=== PATIENT | female | born 1955 | race Caucasian/White ===

== ENCOUNTER → 2017-03-22 | Outpatient (CLI) | payer OTHER | LOC: COL.VAS 07:33 | DX: I34.0 Nonrheumatic mitral (valve) insufficiency (principal); I48.91 Unspecified atrial fibrillation ==

== ENCOUNTER 2017-04-16 07:31 | Day surgery (SDC) | payer OTHER ==
[~2017-04-16] VITALS: Ht 168.9 cm; Wt 72.0 kg
[2017-04-16 08:05] VITALS: BP 98/86; PULSE 88; TEMP 97.9
[2017-04-16] MEDS ORDERED: TOPROL XL 50MG50 MG PO (08:08)
[2017-04-16] MEDS ORDERED: ZYRTEC 10MG10 MG PO (08:08)
[2017-04-16] MEDS ORDERED: VITAMIN C500 MG PO (08:09)
[2017-04-16] MEDS ORDERED: ASPIRIN 81M81 MG/TA2 PO (08:09)
[2017-04-16] MEDS ORDERED: VITAMIN B COMPL1 SGL PO (08:10)
[2017-04-16] MEDS ORDERED: VITAMIN D 400400 IU PO (08:10)
[2017-04-16] MEDS ORDERED: CALCIUM CARBON650 M2 PO (08:10)
[2017-04-16 10:00] VITALS: BP 99/76; PULSE 109; TEMP 98
[2017-04-16 10:15] VITALS: BP 99/68; PULSE 100
[2017-04-16 10:30] VITALS: BP 92/77; PULSE 76
[2017-04-16 10:45] VITALS: BP 98/71; PULSE 96
== END 2017-04-16 11:08 | disposition home or self-care (01) ==
LOC: SDCO 07:31
DX: Z12.11 Encounter for screening for malignant neoplasm of colon (principal); K57.30 Diverticulosis of large intestine without perforation or abscess without bleeding; K64.0 First degree hemorrhoids; Z88.0 Allergy status to penicillin; Z88.2 Allergy status to sulfonamides; Z79.82 Long term (current) use of aspirin
CPT/HCPCS: OP; J2250; J3010; J7030

== ENCOUNTER → 2018-06-03 | Outpatient (CLI) | payer OTHER ==
[~2018-06-03] MED LIST: ASPIRIN 81M81 MG/TA2 PO; CALCIUM CARBON650 M2 PO; TOPROL XL 50MG50 MG PO; VITAMIN B COMPL1 SGL PO; VITAMIN C500 MG PO; VITAMIN D 400400 IU PO; ZYRTEC 10MG10 MG PO
== END ==
LOC: MC.RAD 09:48
DX: Z12.31 Encounter for screening mammogram for malignant neoplasm of breast (principal)

== ENCOUNTER → 2020-03-28 | Outpatient (CLI) | payer BC | LOC: MC.RAD 13:51 | DX: Z12.31 Encounter for screening mammogram for malignant neoplasm of breast (principal) ==

== ENCOUNTER 2021-04-06 06:35 | Inpatient (IN) | payer BC, MEDICARE, OTHER ==
[2021-04-06] VITALS (9 sets, daily range): BP systolic 105–136; BP diastolic 77–91; PULSE 67–107; TEMP 97.8–98.5
[~2021-04-06] VITALS: Ht 170.3 cm; Wt 73.3 kg
[~2021-04-06 06:35] MED LIST changes: +ASPIRIN 32325 MG/TAB PO; -ASPIRIN 81M81 MG/TA2 PO; +CALCIUM 600600 MG PO; -CALCIUM CARBON650 M2 PO; -TOPROL XL 50MG50 MG PO; +TOPROL XL100 MG PO
[2021-04-06 08:27] LABS: HEMATOCRIT 38.9 % (37.0-47.0); MEAN CELL VOLUME 95 fl (80.0-100.0); MEAN CORPUSCULAR HEMOGLOBIN 32 pg (27-31); MEAN CORPUSCULAR HGB CONC 33 g/dl (33.0-37.0); MEAN PLATELET VOLUME 9.7 fl (7.4-10.4); PLATELET COUNT 260 K/mm3 (130-400); REDCELL DISTRIBUTION WIDTH-CV 13.2 % (11.5-14.5)
[2021-04-06 08:43] LABS: CALCIUM 9.1 mg/dL (8.4-10.2); CREATININE, serum 0.81 mg/dL (0.57-1.11); POTASSIUM 4.3 mmol/L (3.5-4.5)
[2021-04-06 08:46] LABS: INR 2.1 (0.8-3.0)
[2021-04-06] MEDS ORDERED: TOPROL XL100 MG PO (08:49)
[2021-04-06] MEDS ORDERED: XARELTO20 MG PO (08:49)
--- NOTE | 2021-04-06 10:09 | NUR ---
Report called to Yanique Rivera.
--- NOTE | 2021-04-06 10:15 | NUR ---
Patient arrived to Medical room 358 at this time, alert/oriented, vital signs stable, heart RRR/ SR on tele s/p cardioversion, she denies pain or discomfort, tolerationg PO intake fine at this time, will give first dose of Sotalol as ordered, she denies needs at this time, will continue to monitor
--- NOTE | 2021-04-06 10:23 | NUR ---
Pt transferred to room 358 om tele,report to Yanique Rivera
--- NOTE | 2021-04-06 20:21 | NUR ---
Patient is resting in bed, alert and oriented x 4, VSS. Denies chest pain, nausea or vomiting. Telemetry in place NSR 70'S. Assessment completed, medications provided. No further needs at this time. Call light within reach.
[2021-04-07] VITALS (12 sets, daily range): BP systolic 103–129; BP diastolic 68–85; PULSE 78–113; TEMP 97.9–98.8
--- NOTE | 2021-04-07 00:49 | NUR ---
Pt complained of burning and itching in the area where the pads where placed after cardioversion. Hydrocortiozone 1% PRN administered.
[2021-04-07 06:00] LABS: BASO # 0.1 K/mm3 (0.0-0.2); BASO % 0.8 % (0.0-2.0); EOS # 0.2 K/mm3 (0.0-0.7); EOS % 2.4 % (0.0-4.0); GRAN # 6.8 K/mm3 (1.4-6.5); GRAN % 72.8 % (42.2-75.2); HEMATOCRIT 38.4 % (37.0-47.0); LYMPH # 1.5 K/mm3 (1.2-3.4); LYMPH % 15.6 % (20.0-51.0); MEAN CELL VOLUME 94 fl (80.0-100.0); MEAN CORPUSCULAR HEMOGLOBIN 32 pg (27-31); MEAN CORPUSCULAR HGB CONC 34 g/dl (33.0-37.0); MEAN PLATELET VOLUME 9.9 fl (7.4-10.4); MONO # 0.8 K/mm3 (0.1-0.6); MONO % 8.2 % (1.7-9.3); PLATELET COUNT 275 K/mm3 (130-400); RED BLOOD COUNT 4.07 M/mm3 (4.10-5.30); REDCELL DISTRIBUTION WIDTH-CV 12.9 % (11.5-14.5)
[2021-04-07 06:09] LABS: INR 1.8 (0.8-3.0); PROTHROMBIN TIME 20.5 SECONDS (9.7-12.8)
[2021-04-07 06:15] LABS: CALCIUM 9.1 mg/dL (8.4-10.2); CREATININE, serum 0.74 mg/dL (0.57-1.11); MAGNESIUM 2.1 mg/dL (1.6-2.6); POTASSIUM 3.8 mmol/L (3.5-4.5)
--- NOTE | 2021-04-07 06:33 | NUR ---
Patient has been stable along the night. NSR. The only complain is about her skin irritation. Report will be given to day RN.
--- NOTE | 2021-04-07 08:23 | NUR ---
Assessment completed, alert/oriented, vital signs stable, denies any chest pain or discomfort, she does report some skin irritation from D-fib patches/ using hydrocortisone cream PRN, heart RRR/ SR on tele, qtc wnl and Sotalol dose given this morning, pedal pulses are palpable, lungs CTA/ no resp.difficutly noted, she is sitting up having breakfast, denies other needs, will continue to monitor
--- NOTE | 2021-04-07 09:39 | NUR ---
Initial visit; Patient thanked Television Receiver Analyzer for looking in on her and offering prayer and God's blessings.
--- NOTE | 2021-04-07 10:48 | NUR ---
overhead worker met with patient to discuss discharge plan. Patient reports that she lives at home with her Michael [phone] in [place]. Patient is independent with her activities of daily living and she does not utilize any DME to assist with mobility and has no oxygen needs at home. PCP is Dr. Swanson and she utilize [facility] for medications. Patient knows she has a living will but is unsure if she created a DPOA-HC at the time of establishing the will. Patient is planning on returning home once she is ready for discharge. Discharge plan: Home with spouse.
--- NOTE | 2021-04-07 19:17 | NUR ---
This RN notified by tele tool rental technician that pt's HR elevated up in 120s, went to check on pt, up ambulating in room, states she feels fine, HR just feels a little fast. replaced some of the leads, checked apical pulse, rate 126. monitor showing Afib, called tele monitor to confirm, notified Dr Albert of changes, cardizem drip ordered @5mg/hr per PIV. pt to rest in bed for now. pt became tearful, asking appropriate questions, wanting to know if this will delay discharge tomorrow, placed on dinamap to follow VS.
[2021-04-08 03:46] VITALS: BP 109/79; PULSE 99; TEMP 98.2
[2021-04-08 05:26] LABS: BASO # 0.1 K/mm3 (0.0-0.2); BASO % 0.8 % (0.0-2.0); EOS # 0.2 K/mm3 (0.0-0.7); EOS % 1.8 % (0.0-4.0); GRAN # 7.8 K/mm3 (1.4-6.5); HEMATOCRIT 40.6 % (37.0-47.0); HEMOGLOBIN 13.7 g/dl (12.5-16.0); LYMPH # 1.1 K/mm3 (1.2-3.4); LYMPH % 11.2 % (20.0-51.0); MEAN CELL VOLUME 94 fl (80.0-100.0); MEAN CORPUSCULAR HEMOGLOBIN 32 pg (27-31); MEAN CORPUSCULAR HGB CONC 34 g/dl (33.0-37.0); MEAN PLATELET VOLUME 9.7 fl (7.4-10.4); MONO # 0.9 K/mm3 (0.1-0.6); MONO % 8.9 % (1.7-9.3); PLATELET COUNT 257 K/mm3 (130-400); RED BLOOD COUNT 4.34 M/mm3 (4.10-5.30); REDCELL DISTRIBUTION WIDTH-CV 12.8 % (11.5-14.5)
[2021-04-08 05:54] LABS: CALCIUM 9.2 mg/dL (8.4-10.2); CREATININE, serum 0.7 mg/dL (0.57-1.11); MAGNESIUM 1.8 mg/dL (1.6-2.6); POTASSIUM 3.9 mmol/L (3.5-4.5)
[2021-04-08 05:56] LABS: INR 2.4 (0.8-3.0); PROTHROMBIN TIME 26.4 SECONDS (9.7-12.8)
--- NOTE | 2021-04-08 06:38 | NUR ---
PT remains in A-fib, rate 100-120s, cardizem @5mg /hr per piv. pt slept most of the noc
[2021-04-08 07:50] VITALS: BP 110/65; PULSE 54; TEMP 98.2
--- NOTE | 2021-04-08 09:00 | NUR ---
Shift assessment complete. Pt lying in bed, at bedside. A&Ox4. Heart rhythm irregular, rate 80-110 at rest. Lungs CTA. Denies chest pain, palpitations, SOA, dizziness, or associated symptoms. Continuing to monitor.
[2021-04-08 11:24] VITALS: BP 111/84; PULSE 74; TEMP 98.4
[2021-04-08] MEDS ORDERED: XARELTO20 MG PO (12:13)
[2021-04-08] MEDS ORDERED: BETAPACE 120MG120 MG PO (12:14)
[2021-04-08] MEDS ORDERED: CLEOCIN HCL300 MG PO (12:15)
[2021-04-08] MEDS ORDERED: ALA-CORT1% TP (12:16)
--- NOTE | 2021-04-08 14:45 | NUR ---
Discharge instructions discussed w/pt and and all questions answered. IV to left AC removed w/tip intact. Pt escorted out via WC by SERVICE UNIT OPERATOR [employer]IL WELL w/all belongings.
== END 2021-04-08 14:40 | disposition home or self-care (01) | DRG 310 ==
LOC: COL.CAR 06:35 → MEDICAL 11:13
PROVIDERS: ADMIT Internal Medicine Adult Congenital Heart Disease
PROC: 5A2204Z Restoration of Cardiac Rhythm, Single (ICD-10-PCS; principal; 2021-04-06)
PROC: B24BZZ4 Ultrasonography of Heart with Aorta, Transesophageal (ICD-10-PCS; 2021-04-06)
DX: I48.19 Other persistent atrial fibrillation (principal); I45.10 Unspecified right bundle-branch block; I44.0 Atrioventricular block, first degree; Z20.822 Contact with and (suspected) exposure to COVID-19; Z88.0 Allergy status to penicillin; Z88.2 Allergy status to sulfonamides
CPT/HCPCS: J0282; J2704; J7060

== ENCOUNTER 2021-04-13 10:06 | Day surgery (SDC) | payer BC, MEDICARE ==
[~2021-04-13] VITALS: Ht 170.2 cm; Wt 72.4 kg
[~2021-04-13 10:06] MED LIST changes: +ALA-CORT1% TP; +BETAPACE 120MG120 MG PO; +CLEOCIN HCL300 MG PO; +XARELTO20 MG PO
[2021-04-13 10:39] VITALS: BP 115/92; PULSE 92; TEMP 97.9
[2021-04-13 10:45] LABS: BASO # 0.1 K/mm3 (0.0-0.2); BASO % 1.2 % (0.0-2.0); EOS # 0.1 K/mm3 (0.0-0.7); EOS % 2.4 % (0.0-4.0); GRAN # 3.8 K/mm3 (1.4-6.5); GRAN % 64.1 % (42.2-75.2); HEMATOCRIT 43.8 % (37.0-47.0); HEMOGLOBIN 15.3 g/dl (12.5-16.0); LYMPH # 1.3 K/mm3 (1.2-3.4); LYMPH % 21.9 % (20.0-51.0); MEAN CELL VOLUME 92 fl (80.0-100.0); MEAN CORPUSCULAR HEMOGLOBIN 32 pg (27-31); MEAN CORPUSCULAR HGB CONC 35 g/dl (33.0-37.0); MEAN PLATELET VOLUME 9.3 fl (7.4-10.4); MONO # 0.6 K/mm3 (0.1-0.6); MONO % 10.1 % (1.7-9.3); PLATELET COUNT 322 K/mm3 (130-400); RED BLOOD COUNT 4.76 M/mm3 (4.10-5.30); REDCELL DISTRIBUTION WIDTH-CV 12.5 % (11.5-14.5)
[2021-04-13 10:52] LABS: PROTHROMBIN TIME 22.1 SECONDS (9.7-12.8)
[2021-04-13 10:55] LABS: PARTIAL THROMBOPLASTIN TIME 42.3 SECONDS (26.0-37.0)
[2021-04-13 11:05] LABS: CALCIUM 9.4 mg/dL (8.4-10.2); CREATININE, serum 0.73 mg/dL (0.57-1.11); MAGNESIUM 2.1 mg/dL (1.6-2.6); POTASSIUM 4.2 mmol/L (3.5-4.5)
[2021-04-13 11:26] LABS: THYROID STIMULATING HORMONE 1.423 uIU/mL (0.350-4.940)
[2021-04-13 11:50] VITALS: BP 103/67; PULSE 64
[2021-04-13 12:00] VITALS: BP 113/88; PULSE 93
[2021-04-13 12:15] VITALS: BP 118/95; PULSE 72
[2021-04-13 12:30] VITALS: BP 125/91; PULSE 81
[2021-04-13 12:45] VITALS: BP 127/88; PULSE 80
--- NOTE | 2021-04-13 13:00 | NUR ---
DC instructions reviewed with pt and , both expressed understanding. She is steady on feet in room. Pt denies need for hydrocortisone cream at this time. She does have tube at home from previous CV, and use of it is discussed as needed for any skin discomfort from patches, she exprsses understanding. Respirations remain even and unlabored. She has remained in a fib rhythm on cylinder checker following CV procedure. INT DC'd with catheter intact. She is assisted out to 's truck by wheelchair.
== END 2021-04-13 13:25 | disposition home or self-care (01) ==
LOC: COL.CAR 10:06
PROVIDERS: Internal Medicine Adult Congenital Heart Disease
DX: I48.91 Unspecified atrial fibrillation (principal); I48.92 Unspecified atrial flutter; I34.0 Nonrheumatic mitral (valve) insufficiency; R73.03 Prediabetes; Z79.899 Other long term (current) drug therapy
CPT/HCPCS: J0282; J2704; J7060; J7120

== ENCOUNTER → 2021-05-02 | Outpatient (CLI) | payer BC, MEDICARE | LOC: MC.RAD 09:15 | DX: Z12.31 Encounter for screening mammogram for malignant neoplasm of breast (principal) ==

== ENCOUNTER → 2022-05-28 | Outpatient (CLI) | payer BC, MEDICARE | LOC: MC.RAD 08:29 | DX: Z12.31 Encounter for screening mammogram for malignant neoplasm of breast (principal) ==

== ENCOUNTER → 2023-07-09 | Outpatient (CLI) | payer BC, MEDICARE | LOC: MC.RAD 15:34 | DX: Z12.31 Encounter for screening mammogram for malignant neoplasm of breast (principal) ==